=== PATIENT | male | born 1990 | race Caucasian/White ===

== ENCOUNTER 2018-12-21 02:29 | Emergency (ER) | payer SELFPAY ==
[2018-12-21] MEDS ORDERED: Albuterol/Ipratropium NEB.SOL* Albuterol 2.5 MG/Ipratropium 0.5 MG 3 ML INH ONE (02:38)
[2018-12-21] MEDS ORDERED: Ondansetron ODT TAB* 4 MG PO ONE (02:38)
[2018-12-21] MEDS ORDERED: Famotidine TAB* 20 MG PO ONE (02:38)
--- NOTE | 2018-12-21 02:46 | ED ---
Respiratory - HPI Summary HPI Summary: Pt is a 28 y/o male who presents to the ED c/o SOB. For the past week hes had SOB, pain with breathing, wet cough, and congestion. Today he started to have nausea and myalgia. He denies any fever, sore throat, or rhinorrhea. Pain is rated a 6/10 in severity. Tonight he was drinking alcohol. Pt is a smoker. PMHx PNA. - History of Current Complaint Chief Complaint: EDGeneral Stated Complaint: ETOH PER EMS Hx Obtained From: Patient, EMS Onset/Duration: Gradual Onset, Lasting Weeks - 1, Worse Since Timing: Constant Current Severity: Moderate Pain Intensity: 6 Character: Cough (Productive), Dyspnea at Rest Aggravating Factor(s): Nothing Alleviating Factor(s): Nothing Associated Signs and Symptoms: SOB, Nasal Congestion Related History: Similar Episode/Dx as - hx smoking, PNA - Allergy/Home Medications Allergies/Adverse Reactions: Allergies Allergy/AdvReac Type Severity Reaction Status Date / Time MS Penicillins [Penicillins] Allergy Intermediate Hives Verified 09/11/12 21:05 PMH/Surg Hx/FS Hx/Imm Hx Endocrine/Hematology History: Denies: Hx Diabetes Respiratory History: Reports: Hx Pneumonia Denies: Hx Asthma Neurological History: Reports: Other Neuro Impairments/Disorders - concussion Psychiatric History: Reports: Hx Depression - Surgical History Surgery Procedure, Year, and Place: states multiple "denytal surgeries" Infectious Disease History: No Infectious Disease History: Denies: Traveled Outside the [place] in Last 30 Days - Family History Known Family History: Negative: Cardiac Disease - Social History Alcohol Use: Occasionally Hx Substance Use: Yes Substance Use Type: Reports: Marijuana Hx Tobacco Use: Yes Smoking Status (MU): Heavy Every Day Tobacco Smoker Type: Cigarettes Amount Used/How Often: 1 ppd Review of Systems Negative: Fever Positive: Other - congestion. Negative: Sore Throat, Nasal Discharge Positive: Shortness Of Breath, Cough - wet, Other - pain with breathing Positive: Nausea Positive: Myalgia All Other Systems Reviewed And Are Negative: Yes Physical Exam - Summary Physical Exam Summary: Appearance: well appearing, no pain distress, smells heavily of alcohol Skin: warm, dry, reflects adequate perfusion Head/face: normal Eyes: EOMI, ROM ENT: mucous membranes moist Neck: supple, non-tender Respiratory: CTA, breath sounds present, no wheezes, tachypneic Cardiovascular: RRR, pulses symmetrical Abdomen: non-tender, soft Bowel Sounds: present Musculoskeletal: normal, strength/ROM intact Neuro: normal, sensory motor intact, A&Ox3 Triage Information Reviewed: Yes Vital Signs On Initial Exam: Initial Vitals Temp Pulse Resp BP Pulse Ox 96.8 F 70 20 102/63 100 12/21/18 02:29 12/21/18 02:29 12/21/18 02:29 12/21/18 02:29 12/21/18 02:29 Vital Signs Reviewed: Yes Diagnostics - Vital Signs Vital Signs Temp Pulse Resp BP Pulse Ox 12/21/18 02:29 96.8 F 70 20 102/63 100 - Laboratory Lab Statement: Any lab studies that have been ordered have been reviewed, and results considered in the medical decision making process. - Radiology CXR Radiology Interpretation Completed By: ED Physician Summary of Radiographic Findings: Peribronchial cuffing. Pending official radiology report. Re-Evaluation - Re-Evaluation First Eval Re-Evaluation Time: 03:24 Change: Improved Comment: Discussed XR results. Pt feels much better. Disposition - Course Course Of Treatment: Nurse's notes reviewed. The patient is tachypneic and complains of a persistent cough recently. X-ray shows peribronchial cuffing consistent with possible viral etiology. The patient is a smoker. There is no wheezes but he felt better after a breathing treatment. He was given Zofran and a Pepcid which settled his belly from drinking alcohol. He ate a sandwich and was feeling much better. His shortness of breath had resolved and he was discharged with a safe ride. He currently demonstrates functional capacity with clear speech, steady gait and normal reasoning. - Differential Dx - Cardiopulmonary Differential Diagnoses - Cardiopulmonary: Other - Pneumonia, bronchitis, influenza, COPD, anxiety - Diagnoses Provider Diagnoses: Acute bronchitis, Alcohol intoxication Discharge - Sign-Out/Discharge Documenting (check all that apply): Patient Departure - Discharge Patient Received Moderate/Deep Sedation with Procedure: No - Discharge Plan Condition: Improved Disposition: HOME Prescriptions: Albuterol HFA INHALER* [Ventolin HFA Inhaler*] 2 puff INH Q4H PRN #1 mdi PRN Reason: Sob/Wheezing Dexamethasone TAB* [Decadron TAB*] 8 mg PO DAILY #8 tab guaiFENesin [Mucinex] 600 mg PO BID #20 tab.er.12h Patient Education Materials: Acute Bronchitis (ED) Referrals: [facility] [Outside] [facility] [Outside] Additional Instructions: Never drink to excess. Do not drive until fully sober. Return with fever, difficulty with breathing, worsening, new symptoms or other concerns. The [facility] can provide follow-up to you usually in 1-2 days' time. Your also given physician referral line they can set you up with a primary care doctor. - Billing Disposition and Condition Condition: IMPROVED Disposition: Home - Attestation Statements Document Initiated by Jessica: Yes Documenting Scribe: Georgina Rodríguez Provider For Whom Eloibe is Documenting (Include Credential): Guille Lipscomb MD Scribe Attestation: Georgina Cadena scribed for Guille Lipscomb MD on 12/21/18 at 0407. Scribe Documentation Reviewed: Yes Provider Attestation: The documentation as recorded by the Georgina sterling accurately reflects the service I personally performed and the decisions made by Guille leung MD Status of Scribe Document: Viewed
[2018-12-21 04:11] VITALS: BP 95/56
== END 2018-12-21 04:13 | disposition home or self-care (01) ==
LOC: ED 02:29
DX: J20.9 Acute bronchitis, unspecified (principal); F10.129 Alcohol abuse with intoxication, unspecified; Z88.0 Allergy status to penicillin; F17.210 Nicotine dependence, cigarettes, uncomplicated
CPT/HCPCS: 71046; 99283; A9270-GY

== ENCOUNTER 2018-12-21 10:34 | Emergency (ER) | payer OTHER ==
[2018-12-21] MEDS ORDERED: oxyCODONE/Acetamin 5/325 MG* TAB PO ONE (10:59)
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
[2018-12-21 13:33] VITALS: BP 115/73
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
== END 2018-12-21 13:31 | disposition home or self-care (01) ==
LOC: ED 10:34
DX: S82.144A Nondisplaced bicondylar fracture of right tibia, initial encounter for closed fracture (principal); M25.461 Effusion, right knee; M25.061 Hemarthrosis, right knee; W18.39XA Other fall on same level, initial encounter; Y92.9 Unspecified place or not applicable; Z88.0 Allergy status to penicillin; F17.210 Nicotine dependence, cigarettes, uncomplicated
CPT/HCPCS: 99282; A9270-GY